=== PATIENT | female | born 1970 | race Caucasian/White ===

== ENCOUNTER 2018-10-16 15:18 | Emergency (ER) | payer OTHER ==
[2018-10-16] MEDS ORDERED: PERCOCET TABLET 5/325MG PO STA (16:41)
[2018-10-16] MEDS ORDERED: PERCOCET TABLET 5/325MG ONE (16:46)
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
[2018-10-16 17:01] VITALS: PULSE 87
[2018-10-16 17:03] VITALS: O2SAT 98
[2018-10-16] MEDS ORDERED: Zanaflex 4 MG PO STA (17:11)
[2018-10-16 18:13] VITALS: BP 134/61
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
== END 2018-10-16 18:31 | disposition home or self-care (01) ==
LOC: ED 15:18
DX: M54.2 Cervicalgia (principal); M25.511 Pain in right shoulder; M54.5 Low back pain; V53.5XXA Driver of pick-up truck or van injured in collision with car, pick-up truck or van in traffic accident, initial encounter; Y92.410 Unspecified street and highway as the place of occurrence of the external cause
CPT/HCPCS: 70450; 72125; 72128; 72131; 72192; 99284; L0120; A9270-GY